=== PATIENT | female | born 1975 | race Caucasian/White ===

== ENCOUNTER 2025-07-04 14:25 | Outpatient (CLI) | payer BC, SELFPAY ==
--- OUTSIDE RECORDS SUMMARY | 2025-07-03 06:41 | XMS_ITS | Encounter Summary ---
Author Organization [facility] Address [address] [place] [address] Care Team Providers Care Photographic Machine Operator Name Role Phone Ivette Carmichael NP Unavailable Yvrose Navas MD Unavailable [phone] Daniel Alvarez MD Unavailable [phone] No, Physician Primary Care Provider Reason for Visit * Auth/Cert (Routine) Specialty Diagnoses / Procedures Referred By Contac t Referred To Contact Diagnoses Screening for colon cancer Screening for colon cancer [Z12.11] Procedures NC COLONOSCOPY FLX DX W/COLLJ SPEC WHEN PFRMD COLONOSCOPY Referral ID Status Reason Start Date Expiration Date Visits Re quested Visits Authorized [id number] 1 1 Encounter Details Date Type Department Care Team (Latest Contact Info) Description 07/03/2025 6:41 AM CDT - 07/03/2025 9:07 AM CDT Hospital Encounter [facility] [address] [place] [address] London Austin, DO [address] [place] [address] [place] [address] Discharge Disposition: Discharge to home or self care Social History Tobacco Use Types Packs/Day Years Used Date Smoking Tobacco: Never Smokeless Tobacco: Never AUDIT-C Answer Date Recorded Q1: How often do you have a drink containing alc ohol? 2-4 times a month 01/25/2024 Average Number of Drinks Not on file 024 Q3: How often do you have si x or more drinks on one occasion? Never 01/25/2024 PHQ-2 Answer Date Recorded PHQ-2 Total Score (If total score is 3 or more points, staff should administer the PHQ-9) 0 12/01/2023 Personal Safety Answer Date Recorded Have you ever been in or are you currently in a harmful physical or emotional relationship or is someone making you feel afraid or unsafe? Denies 07/03/2025 Comments No Sex and Gender Information Value Date Recorded Sex Assigned at Not on file Legal Sex Female 1:03 PM CDT Gender Identity Female 07/14/2021 10:38 AM CDT Sexual Orientation Not on file documented as of this encounter Last Filed Vital Signs Vital Sign Reading Time Taken Comments Blood Pressure 127/77 07/03/2025 8:53 AM CDT Pulse 59 07/03/2025 8:53 AM CDT Temperature 36 C (96.8 F) 07/03/2025 8:53 AM CDT Respiratory Rate 18 07/03/2025 8:53 AM CDT Oxygen Saturation 99% 07/03/2025 8:53 AM CDT Inhaled Oxygen Concentration - - Weight 72.6 kg (160 lb) 07/03/2025 7:29 AM CDT Height 160 cm (5' 3) 07/03/2025 7:29 AM CDT Body Mass Index 28.34 07/03/2025 7:29 AM CDT documented in this encounter Medications at Time of Discharge gabapentin (NEURONTIN) 100 mg capsule Take by mouth 3 (three) times a day tirzepatide 7.5 mg/0.3 mL syringe Inject under the skin levonorgestreL (MIRENA) IUD 1 each by intrauterine route once 03/31/2018 documented as of this encounter Discharge Disposition Disposition Code Departure Means Destination Comment s Discharge to home or self care documented in this encounter H&P Notes * London Austin, - 07/03/2025 7:11 AM CDT Images from the original note were not included. [facility]: Rima Cohn is a 49 y.o. White female. Chief Complaint: Screening for colon cancer. Assessment/Plan: Screening for colon cancer. The risk, complications and alternatives to the procedure were explained in detail with the patient/POA. These include, but are not limited to, hemorrhage, perforation, infection, blood transfusion, surgery, exacerbation of a known or unknown medical condition, and missed lesion. The risks of anesthesia will be explained to the Department of anesthesia. All questions were answered with appropriate understanding. The patient/POA is agreeable to the procedure. Past Medical History: Diagnosis Date HTN (hypertension) Obesity BRENDA (obstructive sleep apnea) Past Surgical History: Procedure Laterality Date SECTION 02/09/14 ORIF ANKLE FRACTURE History: Patient here for colonoscopy. No Known Allergies HOME MEDICATIONS: gabapentin (NEURONTIN) 100 mg capsule tirzepatide 7.5 mg/0.3 mL syringe levonorgestreL (MIRENA) IUD spironolactone (ALDACTONE) 25 mg tablet Social History Tobacco Use Smoking status: Never Smokeless tobacco: Never Substance and Sexual Activity Drug use: Yes Frequency: 1.0 times per week Types: Alcohol Sexual activity: Defer Partners: Male control/protection: I.U.D. Alcohol Use: Unknown (01/25/2024) AUDIT-C Frequency of Alcohol Consumption: 2-4 times a month Average Number of Drinks: Not on file Frequency of Binge Drinking: Never Family History Problem Relation Age of Onset Cancer Mother Breast cancer Maternal Grandmother Cancer Maternal Grandmother Ovarian cancer Neg Hx Thyroid cancer Neg Hx ROS: 14 point ROS is negative except as mentioned in HPI. not currently . There is no height or weight on file to calculate BMI. Gen: Patient alert, no distress, and looks stated age. HEENTN: Head normocephalic, sclera clear, and neck was supple. HRRR Lungs CTA ABD: soft without masses, tenderness, or rigidity. Bowel sounds active. SULAIMAN: no significant joint tenderness or swelling. Neurologic: Non-focal. Skin: warm and dry. Mental Status: Alert, oriented, and cooperative. Rectal: Deferred. London Austin DO Voice recognition software ([employer] Direct) was used to complete this document. Despite proofreading, third helper variances and typographical errors may occur. documented in this encounter Procedure Notes * London Austin DO - 07/03/2025 7:18 AM CDTAssociated Order(s): COLONOSCOPY [facility] Patient Name: Rima Cohn Procedure Date: 07/03/2025 7:18 AM Date of : 1975 Admit Type: Outpatient Age: 49 Gender: Female Attending MD: London Austin D.O., Room: [facility] 3 Note Status: Finalized Patient Profile: Refer to note in patient chart for documentation of history and physical. Procedure: Colonoscopy Indications: Screening for colorectal malignant neoplasm, This is the patient's first colonoscopy Referring MD: Providers: London Austin D.O. Impression: - The examined portion of the ileum was normal. - Non-bleeding internal hemorrhoids. - The examination was otherwise normal on direct and retroflexion views. - No specimens collected. Recommendation: - Discharge patient to home. - Resume previous diet. - Continue present medications. - Repeat colonoscopy in 10 years for screening purposes. - Return to primary care physician PRN. Medicines: Monitored Anesthesia Care Complications: No immediate complications. Estimated Blood Loss: Estimated blood loss: none. Procedure: Pre-Anesthesia Assessment: - As per anesthesia. The benefits, risks and alternatives of the procedure and sedation were discussed and informed consent was obtained. All questions were answered. Please refer to the signed informed consent document in the medical record. The bowel preparation used was Miralax via split dose instruction. The bowel preparation used was bisacodyl tablets via split dose instruction. The scope was passed under direct vision. The Pediatric Colonoscope [id number] was introduced through the anus and advanced to the 3 cm into the ileum. The colonoscopy was performed without difficulty. The patient tolerated the procedure well. The quality of the bowel preparation was good. Anatomical landmarks were photographed. Findings: The perianal and digital rectal examinations were normal. The terminal ileum appeared normal. Non-bleeding internal hemorrhoids were found. The hemorrhoids were small. The exam was otherwise without abnormality on direct and retroflexion views. Electronically signed by London Austin M.D. London Austin D.O. 07/03/2025 8:28:19 AM Number of Addenda: 0 Note Initiated On: 07/03/2025 7:18 AM Procedure Code(s): --- Professional --- G0121, Colorectal cancer screening; colonoscopy on individual not meeting criteria for high risk --- Technical --- G0121, Colorectal cancer screening; colonoscopy on individual not meeting criteria for high risk Diagnosis Code(s): --- Professional --- Z12.11, Encounter for screening for malignant neoplasm of colon K64.8, Other hemorrhoids --- Technical --- Z12.11, Encounter for screening for malignant neoplasm of colon K64.8, Other hemorrhoids CPT copyright 2022 [employer]. All rights reserved. The codes documented in this report are preliminary and upon pediatric clinical dietician review may be revised to meet current compliance requirements. Recognized by the [employer] for promoting quality in endoscopy documented in this encounter Nursing Notes * Aleta Ruiz, LISA - 07/03/2025 8:[address] Austin spokewith Patient and regarding today's procedure. He recommends returning in 10 years for another colonoscopy. documented in this encounter Plan of Treatment Not on file documented as of this encounter Procedures Procedure Name Priority Date/Time Associated Diagnosis Comments COLONOSCOPY 07/03/2025 8:10 AM CDT Screening for colon cancer POCT HCG, URINE Routine 07/03/2025 8:03 AM CDT COLONOSCOPY 07/03/2025 7:18 AM CDT documented in this encounter Results * POCT hCG, urine (07/03/2025 8:03 AM CDT) HCG, ur, POC Negative Negative Lot Number [id number] QC Backgroud Clear Acceptable QC Control Line Acceptable Urine 07/03/2025 8:03 AM CDT London Austin DO POINT OF CARE TEST ORDERABLES Final Result * Colonoscopy (07/03/2025 7:18 AM CDT) Anatomical Region Laterality Modality Other Narrative Procedure Note London Austin, - 07/03/2025 7:18 AM CDT [facility] Patient Name: Rima Cohn Procedure Date: 07/03/2025 7:18 AM Date of : 1975 Admit Type: Outpatient Age: 49 Gender: Female Attending MD: London Austin D.O., Room: [facility] 3 Note Status: Finalized Patient Profile: Refer to note in patient chart for documentation of history and physical. Procedure: Colonoscopy Indications: Screening for colorectal malignant neoplasm, Thisis the patient's first colonoscopy Referring MD: Providers: London Austin D.O. Impression: - The examined portion of the ileum was normal. - Non-bleeding internal hemorrhoids. - The examination was otherwise normal on directand retroflexion views. - No specimens collected. Recommendation: - Discharge patient to home. - Resume previous diet. - Continue present medications. - Repeat colonoscopy in 10 years for screening purposes. - Return to primary care physician PRN. Medicines: Monitored Anesthesia Care Complications: No immediate complications. Estimated Blood Loss: Estimated blood loss: none. Procedure: Pre-Anesthesia Assessment: - As per anesthesia. The benefits, risks and alternatives of theprocedure and sedation were discussed and informed consentwas obtained. All questions were answered. Please referto the signed informed consent document in the medical record. The bowel preparation used was Miralax via split dose instruction. The bowel preparation usedwas bisacodyl tablets via split dose instruction. The scope was passed under direct vision. The Pediatric Colonoscope [id number] was introduced through the anus and advanced to the 3 cm into the ileum. The colonoscopy was performed without difficulty. The patient tolerated the procedurewell. The quality of the bowel preparation was good. Anatomical landmarks were photographed. Findings: The perianal and digital rectal examinations were normal. The terminal ileum appeared normal. Non-bleeding internal hemorrhoids were found. The hemorrhoids weresmall. The exam was otherwise without abnormality on direct and retroflexion views. Electronically signed by London Austin M.D. London Austin D.O. 07/03/2025 8:28:19 AM Number of Addenda: 0 Note Initiated On: 07/03/2025 7:18 AM Procedure Code(s): --- Professional --- G0121, Colorectal cancer screening; colonoscopy on individual not meeting criteria for high risk --- Technical --- G0121, Colorectal cancer screening; colonoscopy on individual not meeting criteria for high risk Diagnosis Code(s): --- Professional --- Z12.11, Encounter for screening for malignant neoplasm of colon K64.8, Other hemorrhoids --- Technical --- Z12.11, Encounter for screening for malignant neoplasm of colon K64.8, Other hemorrhoids CPT copyright 2022 [employer]. All rights reserved. The codes documented in this report are preliminary and upon pediatric clinical dietician reviewmay be revised to meet current compliance requirements. Recognized by the [employer] for promoting quality in endoscopy London Austin DO ENDOSCOPY PROCEDURES Final Res ult documented in this encounter Visit Diagnoses Diagnosis Screening for colon cancer- Primary Special screening for malignant neoplasms, colon documented in this encounter Admitting Diagnoses Diagnosis Screening for colon cancer Special screening for malignant neoplasms, colon documented in this encounter Administered Medications Inactive Administered Medications - up to 3 most recent administrations Medication Order MAR Action Action Date Dose Rate Site ondansetron (ZOFRAN) injection 4 mg 4 mg, intravenous, Administer over 2 Minutes, Every 30 min PRN, nausea, vomiting, Starting on Tue07/03/25 at 0723, For 2 doses, Recovery (GI), Indications: Nausea and VomitingIndications:Nausea and Vomiting sodium chloride 0.9% flush 0.5-20 mL 0.5-20 mL, intra-catheter, As needed, line care, Starting on Tue07/03/25 at 0724, Pre-Procedure (GI), Flush volume based on line type and size. Flush before and after each use. sodium chloride 0.9% infusion 30 mL/hr, intravenous, Continuous, Starting on Tue07/03/25 at 0800, Pre-Procedure (GI) Rate/Dose Verify 07/03/2025 8:25 AM CDT 125 mL/h r Rate/Dose Change 07/03/2025 8:25 AM CDT 125 mL/ hr Rate/Dose Change 07/03/2025 8:21 AM CDT 750 mL/ hr sodium chloride 0.9% infusion 125 mL/hr, intravenous, Continuous, Starting on Tue07/03/25 at 0800, Recovery (GI) New Order/Same Infusion 07/03/2025 8:33 AM CDT 125 mL/hr 125 mL/hr documented in this encounter Historical Medications * This list may reflect changes made after this encounter. gabapentin (NEURONTIN) 100 mg capsule Take by mouth 3 (three) times a day tirzepatide 7.5 mg/0.3 mL syringe Inject under the skin added in this encounter Active and Recently Administered Medications Times are shown in CDT. Continuous Medication Order 07/01/2025 07/02/2025 07/03/2025 sodium chloride 0.9% infusion 30 mL/hr, intravenous, Continuous, Starting on Tue07/03/25 at 0800, Pre-Procedure (GI) 0811 (Canceled Entry - Provider: Demetris Knight CRNA)0820 (New Bag - Provider: Demetris Knight CRNA)0821 (Rate/Dose Change - Provider: Demetris Knight CRNA)0825 (Rate/Dose Change - Provider: Demetris Knight CRNA)0825 (Rate/Dose Verify - Provider: Demetris Knight CRNA)1308 (Due: Stopped) sodium chloride 0.9% infusion 125 mL/hr, intravenous, Continuous, Starting on Tue07/03/25 at 0800, Recovery (GI) 0833 (New Order/Same Infusion - Provider: Aleta Ruiz, LISA)0857 (Stopped - Provider: Mariana Grant RN) PRN Medication Order 07/01/2025 07/02/2025 07/03/2025 ondansetron (ZOFRAN) injection 4 mg 4 mg, intravenous, Administer over 2 Minutes, Every 30 min PRN, nausea, vomiting, Starting on Tue07/03/25 at 0723, For 2 doses, Recovery (GI), Indications: Nausea and Vomiting sodium chloride 0.9% flush 0.5-20 mL 0.5-20 mL, intra-catheter, As needed, line care, Starting on Tue07/03/25 at 0724, Pre-Procedure (GI), Flush volume based on line type and size. Flush before and after each use. documented in this encounter Orders Medications Ordered That Roberto ht Not Have Been Administered Count Last Ordered Date First Ordered Date ondansetron (ZOFRAN) injection 4 mg 1 07/03 sodium chloride 0.9% flush 0.5-20 mL 06/24 sodium chloride 0.9% infusion 1 07/03/2025 Discharge Count Last Ordered Date First Orde red Date DISCHARGE PATIENT 1 07/03/2025 documented in this encounter Care Teams Photographic Machine Operator Relationship Specialty Start Date End Date No, Physician PCP - General 09/03/24 Ivette Carmichael NP [address] [place], [place] [id number] Nurse Practitioner Nurse Practitioner 06/08/21 Yvrose Navas MD [address] [place] [address] Referring Physician Dermatology 07/14/21 Daniel Alvarez MD [address] [place], [place] [id number] Referring Physician Obstetrics and Gynecology 07/20/22 documented as of this encounter
--- OUTSIDE RECORDS SUMMARY | 2025-07-03 08:00 | XMS_ITS | Encounter Summary ---
Author Organization [facility] Address [address] [place] [address] Care Team Providers Care Outpatient Therapist Name Role Phone Ivette Carmichael NP Unavailable Yvrose Navas MD Unavailable [phone] Daniel Alvarez MD Unavailable [phone] No, Physician Primary Care Provider [phone] Reason for Visit * Auth/Cert (Routine) Specialty Diagnoses / Procedures Referred By Contfelicity t Referred To Contact Diagnoses Screening for colon cancer Screening for colon cancer [Z12.11] Procedures ME COLONOSCOPY FLX DX W/COLLJ SPEC WHEN PFRMD COLONOSCOPY Referral ID Status Reason Start Date Expiration Date Visits Re quested Visits Authorized [id number] 1 1 Encounter Details Date Type Department Care Team (Late st Contact Info) Description 07/03/2025 8:00 AM CDT - 07/03/2025 8:30 AM CDT Surgery [facility] [address] [place] [address] London Austin DO [address] [place] [address] [address] COLONOSCOPY Surgery Details Date/Time Status Location OR Service Patient Class Case Class Case Type Trauma Case? 07/03/2025 8:00 AM Posted [facility] END[facility]COPY GI 03 Gastroenterology Outpatient Elective Panel 1 Procedure LRB Anes Op Region Wound Class Comments COLONOSCOPY N/A Monitor Anesthesia Care Surgeon Surgeon Role Service Panel London Austin DO Primary Gastroenterology 1 documented in this encounter Social History Tobacco Use Types Packs/Day Years [...] Sign Reading Time Taken Comments Blood Pressure 111/77 07/03/2025 8:25 AM CDT Pulse 71 07/03/2025 8:25 AM CDT Temperature 36.8 C (98.2 F) 07/03/2025 7:29 AM CDT Respiratory Rate 18 07/03/2025 8:25 AM CDT Oxygen Saturation 100% 07/03/2025 8:25 AM CDT Inhaled Oxygen Concentration - - [...] from the original note were not included. [facility]: Rima Cohn is a 49 [...] Deferred. London Austin DO Voice recognition software ([employer]) was used to complete this document. Despite proofreading, milling planer operator variances and typographical errors may occur. documented in this encounter Procedure Notes * London Austin DO - 07/03/2025 7:18 AM CDTAssociated Order(s): COLONOSCOPY [facility] Patient Name: Rima Cohn Procedure Date: 07/03/2025 7:18 AM Date of : 1975 Admit Type: Outpatient Age: 49 Gender: Female Attending MD: London Austin D.O., Room: [facility] 3 Note Status: Finalized Patient [...] passed under direct vision. The Pediatric Colonoscope [id number] was introduced through the anus and advanced [...] colon K64.8, Other hemorrhoids CPT copyright 2022 [employer]. All rights reserved. The codes documented in this report are preliminary and upon supervisor coremaker review may be revised to meet current compliance requirements. Recognized by the [employer] for promoting quality in endoscopy documented in this encounter Nursing Notes * Aleta Ruiz, RN - 07/03/2025 8:[address] Austin [...] Laterality Modality Other Narrative Procedure Note London Austin DO - 07/03/2025 7:18 AM CDT [facility] Patient Name: Rima Cohn Procedure Date: 07/03/2025 7:18 AM Date of : 1975 Admit Type: Outpatient Age: 49 Gender: Female Attending MD: London Austin D.O., Room: [facility] 3 Note Status: Finalized Patient [...] passed under direct vision. The Pediatric Colonoscope [id number] was introduced through the anus and advanced [...] colon K64.8, Other hemorrhoids CPT copyright 2022 [employer]. All rights reserved. The codes documented in this report are preliminary and upon supervisor coremaker reviewmay be revised to meet current compliance requirements. Recognized by the [employer] for promoting quality in endoscopy London Austin DO ENDOSCOPY PROCEDURES Final Res ult documented in this encounter Visit Diagnoses Diagnosis Screening for colon cancer- Primary Special screening for malignant neoplasms, colon Screening for colon cancer Special screening for [...] 0833 (New Order/Same Infusion - Provider: Aleta Ruiz RN)0857 (Stopped - Provider: Mariana Grant RN) PRN [...] 07/03 sodium chloride 0.9% flush 0.5-20 mL 1 06/24 sodium chloride 0.9% infusion 1 07/03/2025 Discharge Count Last Ordered Date First Orde red Date DISCHARGE PATIENT 1 07/03/2025 documented in this encounter Care Teams Outpatient Therapist Relationship Specialty Start Date End Date No, Physician PCP - General 09/03/24 Ivette Carmichael NP [address] [place] [id number] Nurse Practitioner Nurse Practitioner 06/08/21 Yvrose Navas MD [address] [place], [place] [id number] Referring Physician Dermatology 07/14/21 Daniel Alvarez MD [address] [place] [address] Referring Physician Obstetrics and Gynecology 07/20/22 documented as of this encounter
--- OUTSIDE RECORDS SUMMARY | 2025-07-03 08:10 | XMS_ITS | Encounter Summary ---
Author Organization [facility] Address [address] [place] [address] Care Team Providers Care [employer] [place] Manager Name Role Phone Ivette Carmichael NP Unavailable Yvrose Navas MD Unavailable [phone] Daniel Alvarez MD Unavailable [phone] No, Physician Primary Care Provider [phone] Reason for Visit * Auth/Cert (Routine) Specialty Diagnoses / Procedures Referred By Contac t Referred To Contact Diagnoses Screening for colon cancer Screening for colon cancer [Z12.11] Procedures IN COLONOSCOPY FLX DX W/COLLJ SPEC WHEN PFRMD COLONOSCOPY Referral ID Status Reason Start Date Expiration Date Visits Re quested Visits Authorized [id number] 1 1 Encounter Details Date Type Department Care Team (Late st Contact Info) Description 07/03/2025 8:10 AM CDT Anesthesia Event [facility] [address] [place] [address] [place] [address] [place] [address] Demetris Knight CRNA [address] [place] [address] Anesthesia Record Procedure Summary Procedure Name Responsible Anesthesiologist Anesthesia Start Time Anesthesia Stop Time COLONOSCOPY Forest Bosch MD 07/03/25 0810 0 07/03/25 0825 Events Date Time Event Comment 07/03/2025 0808 0810 An Start 0810 An Start Data 0810 In Room 0812 Start Supplemental O2 0812 Patient Positioned Laterally 0813 Proc Start 0813 An Induction The patient was reevaluated immediately before moderate or deep sedation use and before anesthesia induction. 0813 Anesthesia Ready 0824 Proc Fin 0825 an stop data 0825 Out of Room 0825 Handoff to RN I completed my handoff to the receiving nurse during which we: 1. Patient identified 2. Responsible provider identified 3. Pertinent medical history reviewed 4. Procedure type and surgical course discussed 5. Intraoperative anesthetic management and any significant issues discussed 6. Expectations and concerns for postop period discussed 7. Questions solicited from receiving nurse 8. Patient disposition at the time of handoff: PACU 824 An Stop Meds Name Total lidocaine (cardiac) syringe 2 % 80 mg propofol 150 mg sodium chloride 0.9% infusion 52.86 mL * Agents Name O2 * Blood No blood administrations on file. Lines, Drains, and Airways Type Details Placement Removal Peripheral IV Placement Date: 06/24 ; Placement Time: 075; Catheter Size: 22 G; Orientation: Right; Location: Hand; Site Prep: Alcohol; Technique: Anatomical landmarks; Inserted by: Mariana Grant RN; Insertion Attempts: 1; Patient Tolerance: Tolerated well; Removal Date: 07/03/25; Removal Time: 0850; Removal Reason: Therapy completed 07/03/25 0755 by Mariana Grant RN 07/03/25 0850 by Mariana Grant, RN documented in this encounter Social History Tobacco [...] on file documented as of this encounter OR Notes * Anesthesia Postprocedure Evaluation - Demetris Knight CRNA - 07/03/2025 8:25 AM CDT Patient: Rima Cohn Procedure Summary Date: 07/03/25 Room / Location: [facility] ROOM 3 / [facility] Anesthesia Start: 809 Anesthesia Stop: 824 Procedure: COLONOSCOPY Diagnosis: Screening for colon cancer (Screening for colon cancer [Z12.11]) Providers: London Austin DO Responsible Provider: Forest Bosch MD Anesthesia Type: general/TIVA ASA Status: 2 Anesthesia Type: general/TIVA Last vitals BP 111/76 Pulse 80 Temp 36.8 ??C (98.2 ??F) (Temporal) Resp 18 Ht 160 cm (5' 3) Wt 72.6 kg (160 lb) SpO2 98% BMI 28.34 kg/m?? Anesthesia Post Evaluation Patient location during evaluation: PACU Patient participation: complete - patient participated Level of consciousness: fully awake Pain management: adequate Airway patency: adequate Evidence of recall: no Cardiovascular status: hemodynamically stable and acceptable Respiratory status: acceptable, non-labored ventilation and spontaneous ventilation Hydration status: acceptable Pt is: normothermic Nausea/Vomiting status: none No notable events documented. * Anesthesia Preprocedure Evaluation - Forest Bosch MD - 07/03/2025 8:07 AM CDT Images from the original note were not included. Anesthesia Evaluation Rima Cohn is a 49 y.o. female COLONOSCOPY Pre-Op Diagnosis Codes: * Screening for colon cancer [Z12.11] HISTORY Past Medical History Information obtained from: patient and chart. Information obtained during: In Person Cardiovascular + Hypertension Respiratory + Sleep apnea (BRENDA) Prescribed device: CPAP. Endocrine / Other Comments: Tirzepatide held Day of Surgery assessments + Possibility of assessed - HCG negative (see labs). Comments: IUD Patient Active Problem List Diagnosis Date Noted BRENDA (obstructive sleep apnea) 09/25/2024 Screening for colon cancer 07/31/2024 Bacteria in urine 01/31/2024 Class 1 obesity due to excess calories with serious comorbidity and body mass index (BMI) of 32.0 to 32.9 in adult 12/01/2023 Chronic fatigue 12/01/2023 Myalgia 12/01/2023 H/O fracture of ankle 04/18/2023 Weight gain 11/11/2022 Acne vulgaris 07/14/2021 Primary hypertension 06/08/2021 Past Medical History: Diagnosis Date HTN (hypertension) Obesity BRENDA (obstructive sleep apnea) Past Surgical History: Procedure Laterality Date SECTION 02/09/14 ORIF ANKLE FRACTURE OB History 3 Para 3 Term 3 AB Living SAB IAB Ectopic Multiple Live Births No Known Allergies Taking? Last Dose Start Date End Date Provider gabapentin (NEURONTIN) 100 mg capsule Past Week -- -- Santy Cm MD levonorgestreL (MIRENA) IUD -- 03/31/18 -- Daniel Alvarez MD tirzepatide 7.5 mg/0.3 mL syringe Past Week -- -- ProviderSanty MD Notes: Stopped on 06/22/2025 Flag for Review Taking? Last Dose Start Date End Date Provider spironolactone (ALDACTONE) 25 mg tablet () -- 09/29/23 09/28/24 Aminata Arzate, DO Take 1 tablet (25 mg total) by mouth 2 (two) times a day Current Facility-Administered Medications: ondansetron (ZOFRAN) injection 4 mg, 4 mg, intravenous, Q30 Min PRN sodium chloride 0.9% flush 0.5-20 mL, 0.5-20 mL, intra-catheter, PRN sodium chloride 0.9% infusion, 30 mL/hr, intravenous, Continuous sodium chloride 0.9% infusion, 125 mL/hr, intravenous, Continuous Social History Tobacco Use Smoking Status Never Smokeless Tobacco Never Alcohol Use: Unknown (01/25/2024) AUDIT-C Frequency of Alcohol Consumption: 2-4 times a month Average Number of Drinks: Not on file Frequency of Binge Drinking: Never Substance and Sexual Activity Drug Use Yes Frequency: 1.0 times per week Types: Alcohol Family History Problem Relation Age of Onset Cancer Mother Breast cancer Maternal Grandmother Cancer Maternal Grandmother Ovarian cancer Neg Hx Thyroid cancer Neg Hx Vitals: 07/03/25 0729 BP: 111/76 Pulse: 80 Resp: 18 Temp: 36.8 ??C (98.2 ??F) SpO2: 98% PT: No results found for requested labs within last 30 days. INR: No results found for requested labs within last 30 days. APTT: No results found for requested labs within last 30 days. Hgb A1C: No results found for requested labs within last 30 days. CBC RBC: No results found for requested labs within last 30 days. RDW: No results found for requested labs within last 30 days. MCHC: No results found for requested labs within last 30 days. MCH: No results found for requested labs within last 30 days. MCV: No results found for requested labs within last 30 days. Hct: No results found for requested labs within last 30 days. Hgb: No results found for requested labs within last 30 days. WBC: No results found for requested labs within last 30 days. MPV: No results found for requested labs within last 30 days. Platelets: No results found for requested labs within last 30 days. RDW CV: No results found for requested labs within last 30 days. RDW Sd: No results found for requested labs within last 30 days. BMP Glucose: No results found for requested labs within last 30 days. Calcium: No results found for requested labs within last 30 days. Sodium: No results found for requested labs within last 30 days. Potassium: No results found for requested labs within last 30 days. CO2: No results found for requested labs within last 30 days. Chloride: No results found for requested labs within last 30 days. BUN: No results found for requested labs within last 30 days. Creatinine: No results found for requested labs within last 30 days. DOS Physical Exam Date of Last Liquid: 07/02/25, Time of Last Liquid: 2229 Date of Last Solid: 07/01/25, Time of Last Solid: 1999 Medical history, medications, and allergies reviewed. Attestation: I endorse the findings of the anesthesia pre-evaluation assessment dated: 07/03/2025. Airway Exam: Mallampati: II Cervical ROM: FROM TM distance: >4 EENT Exam: trachea midline Current state: Patient's current state is cooperative. Anesthesia Plan ASA 2 Planned anesthesia: General/TIVA Induction: Induction: intravenous. Postoperative Plan: Patient's planned disposition post procedure is Outpatient. Informed Consent: Discussed plan with DIRECTOR OF DEMENTIA OPERATIONS and attending. Anesthesia plan and risks discussed with patient. Consent and Attending signature: I and/or my designee have discussed the anesthesia plan, benefits, possible alternatives, parental presence at time of induction (if indicated), and clinically relevant risks that may include dental injury, unintentional awareness, and/or other complications. The patient and/or parent/legal guardian understand, and agree to proceed. All questions answered. documented in this encounter Plan of Treatment Not on file documented as of this encounter Visit Diagnoses Not on filedocumented in this encounter Administered Medications Inactive Administered Medications - up to 3 most recent administrations Medication Order MAR Action Action Date Dose Rate Site lidocaine (PF) (XYLOCAINE) 20 mg/mL (2 %) preservative free injection intravenous, As needed, Starting on Tue07/03/25 at 0813, Anesthesia Intra-op Given 07/03/2025 8:13 AM CDT 80 mg propofoL (DIPRIVAN) 10 mg/mL IV intravenous, As needed, Starting on Tue07/03/25 at 0813, Anesthesia Intra-op Given 07/03/2025 8:18 AM CDT 30 mg Given 07/03/2025 8:15 AM CDT 20 mg Given 07/03/2025 8:13 AM CDT 100 mg sodium chloride 0.9% infusion 30 mL/hr, intravenous, Continuous, Starting on Tue07/03/25 at 0800, Pre-Procedure (GI) Rate/Dose Verify 07/03/2025 8:25 AM CDT 125 mL/hr Rate/Dose Change 07/03/2025 8:25 AM CDT 125 mL/ hr Rate/Dose Change 07/03/2025 8:21 AM CDT 750 mL/ hr documented in this encounter Care Teams [employer] [place] Manager Relationship Specialty Start Date End Date No, Physician PCP - General 09/03/24 Ivette Carmichael NP [address] [place] [address] Nurse Practitioner Nurse Practitioner 06/08/21 Yvrose Navas MD [address] [place] [address] Referring Physician Dermatology 07/14/21 Daniel Alvarez MD [address] [place] [id number] Referring Physician Obstetrics and Gynecology 07/20/22 documented as of this encounter
--- OUTSIDE RECORDS SUMMARY | 2025-07-04 16:12 | XMS_ITS | Clinical Summary ---
Author Organization [facility] [address] Address [address] [place] [address] Care Team Providers Care Zigzagger Name Role Phone Ivette Carmichael NP Unavailable Yvrose Navas MD Unavailable [phone] Daniel Alvarez MD Unavailable [phone] No, Physician Primary Care Provider [phone] Allergies No known active allergies Medications levonorgestreL (MIRENA) IUD 1 each by intrauterine route once 8 Active spironolactone (ALDACTONE) 25 mg tabletIndicatio ns:Primary hypertension,Ac ne vulgaris Take 1 tablet (25 mg total) by mouth 2 (two) times a day 180 tablet 3 3 Active tirzepatide 7.5 mg/0.3 mL syringe Inject under the skin Active gabapentin (NEURONTIN) 100 mg capsule Take by mouth 3 (three) times a day Active Active Problems Problem Noted Date Diagnosed Date BRENDA (obstructive sleep apnea) 09/25/2024 Screening for colon cancer 07/31/2024 Bacteria in urine 01/31/2024 Class 1 obesity due to exces s calories with serious comorbidity and body mass index (BMI) of 32.0 to 32.9 in adult 12/01/2023 Chronic fatigue 12/01/2023 Assessment & Plan (12/01/2023 4:03 PM MILLER FIRST): Encouraged daily exercise as tolerated, labs ordered. Myalgia 12/01/2023 Assessment & Plan (12/01/2023 4:03 PM MILLER FIRST): Labs ordered, will follow. Encouraged daily stretching. H/O fracture of ankle 04/18/2023 Overview (12/01/2023): right Weight gain 11/11/2022 Assessment & Plan (11/11/2022 8:58 AM MILLER FIRST): Based off patient's menstrual history/PCOS features, will check fasint insulin levels to see if elevated and possibly related to patient's weight gain/inability to loose excess weight. Encourage a weight loss program such as Weight Watchers incorporating dietary changes and aerobic / weight-bearing exercise at least 4-5 times per week, for at least 30-45 minute sessions. Acne vulgaris 07/14/2021 Assessment & Plan (12/01/2023 4:03 PM MILLER FIRST): Trial of BenzaClin, wash face twice daily with anti-bacterial soap. Continue spironolactone. Assessment & Plan (07/20/2022 4:04 PM CDT): Asymptomatic today. Clean affected areas with mild soap and water. Will restart spironolactone, mainly for bp control. Assessment & Plan (07/16/2021 9:30 AM CDT): Re-start spironolactone. Patient encouraged to monitor bps. Primary hypertension 06/08/2021 Assessment & Plan (12/01/2023 9:30 AM MILLER FIRST): Blood pressure at goal less than 140/90, continue current prescription medications, spironolactone. Assessment & Plan (08/26/2022 9:12 AM CDT): Blood Pressure Follow-up: Lifestyle modifications education provided on increase physical activity and weight reduction. Improved with spironolactone. Well controlled. Can check blood pressures at home, so will let her f/u in 1 year for physical and as needed. Assessment & Plan (07/20/2022 4:04 PM CDT): Uncontrolled, re-start spironolactone. Close f/u BP goal < 140/90. Low sodium diet recommended. Assessment & Plan (07/16/2021 9:30 AM CDT): Clinically resolved. Patient has not been taking her lisinopril- hydrochlorothiazide for weeks. D/C Lisinopril-HCT. Assessment & Plan (06/08/2021 10:35 AM CDT): Diagnosed with hypertension years ago. Now hypotensive. Will discontinue spironolactone. Continue Zestoretic 20-12.5 1 tablet q.a.m.. Hold for blood pressures less than 130/80. Resolved Problems Problem Noted Date Diagnosed Date Resolved Date Acute cystitis without hematuria 07/14/2021 07/20/2022 Assessment & Plan (07/16/2021 9:30 AM CDT): Asx. MIROSLAVA ordered. Early satiety 06/08/2021 07/20/2022 Assessment & Plan (06/08/2021 10:36 AM CDT): Recommended consultation with funeral service practitioner/embalmer. Patient reports that if she continues to have the problem she would let me know so she can get referral. Continue Tums as needed, for heartburn. Belching 06/08/2021 07/20/2022 Advanced maternal age in 11/22/2013 07/20/2022 Hypertension complicating 11/22/2013 07/20/2022 Supervision of other high ri sk pregnancies, unspecified trimester 11/19/2013 07/20/2022 Overview (07/20/2022): Two vessel umbilical cord, antepartum 11/19/2013 07/20/2022 Encounters Date Type Department Care Team Description 07/03/2025 8:10 AM CDT Anesthesia Event [address] [address] Forest Bosch MD Gill, Matthew, ROTARY CUTTER 07/03/2025 8:00 AM CDT - 07/03/2025 8:30 AM CDT Surgery [address] [address] London Austin, DO COLONOSCOPY 07/03/2025 6:41 AM CDT - 07/03/2025 9:07 AM CDT Hospital Encounter [facility] [address] [place] [address] London Austin, DO Discharge Disposition: Discharge to home or self care 05/23/2025 Telephone [facility] Gastroenterology at [address] [place] [address] Emily Phillips Prep Instructions from Last 3 Months Immunizations Immunization Administration Dates Next Due Influenza, Quadrivalent, Zoila l Culture-based MDCK, Preservative Free, Antibiotic Free, Intramuscular 07/31/2019 Influenza, Quadrivalent, Spl it, Preservative Free, Intramuscular 07/20/2022,07/14/2021,09/10/2020 Influenza, Unspecified 07/26/2023,07/24/2020,10/2018 Tdap 07/14/2021 Surgical History Surgery Date Site/Laterality Comments SECTION 02/09/14 ORIF ANKLE FRACTURE Medical History Medical History Date Comments HTN (hypertension) Obesity BRENDA (obstructive sleep apnea) Family History Medical History Relation Name Comments Breast cancer Maternal Grandmother [place] Cancer Maternal Grandmother [place] Cancer Mother Brandy Ovarian cancer Neg Hx Thyroid cancer Neg Hx Relation Name Status Comments Maternal Grandmother [place] Maternal Great-Grandmother Mother Brandy Social History Tobacco Use Types Packs/Day Years Used Date Smoking Tobacco: Never Smokeless Tobacco: Never Tobacco Cessation:Counseling Given: Not Answered AUDIT-C Answer Date Recorded Q1: How often [...] AM CDT Sexual Orientation Not on file Obstetrics History Para Term AB IAB SAB Ectopic Multiple Livin g Live Births 3 3 3 Date Outcome GA Total Labor Labor/2nd/3rd Weight Sex Type Anes PTL Ree A1 A5 Name Clin Term Term Term Last Filed Vital Signs Vital Sign Reading [...] Mass Index 28.34 07/03/2025 7:29 AM CDT Plan of Treatment Health Maintenance Due Date Last Done Comments Hepatitis B Screening 1993 Regular Well Visit/Exam 18-64 11/10/2023 11/10/2022, 07/20/2022, 07/14/2021 Depression Screening 12/01/2024 12/01/2023, 08/25/2022, 07/20/2022, Additional history exists Covid-19 Vaccine ( season) 2025 01/22/2021, 01/01/2021 Influenza Vaccine (#1) 2025 , 07/20/2022, 07/14/2021, Additional history exists Breast Cancer Screening-Mammogram 10/10/2025 10/10/2024, 10/05/2023, 08/19/2022, Additional history exists Cervical Cancer Screening 11/10/2027 11/10/2022 DTaP/Tdap/Td Vaccine (2 - Td or Tdap) 07/14/2031 07/14/2021 Colon Cancer Screening-Colonoscopy 07/03/2035 07/03/2025 Hepatitis C Screening Completed 07/14/2021 Pneumococcal vaccine <65 Aged Out No longer eligible based on patient's age to complete this topic Medical Devices Implanted Type Area Streetcar Repairer Device Identifier Shelf Expiration Date Model / Serial / Lot Med[employer] Screw Bone Cannulated Unite 4.0x38mm [id number] - [id number] Implanted:Qty: 1 on 04/21/2023 by Pankaj Salgado MD at [facility] Screw Right: Ankle [employer] [id number] / / [employer] Rudi .062in 9in Trocar [employer] Orthopedic Wire [id number] - [id number] Implanted:Qty: 1 on 04/21/2023 by Pankaj Salgado MD at [facility] Right: Ankle [employer] [id number] / / [employer] Plate Bone Medline Unite Medium Fibula Right Posterior [id number] - [id number] Implanted:Qty: 1 on 04/21/2023 by Pankaj Salgado MD at [facility] Right: Ankle [employer] [id number] / / [employer] Screw 30mm 4mm Bone Medline Unite Foot Ankle Nonlock [id number] - [id number] Implanted:Qty: 1 on 04/21/2023 by Pankaj Salgado MD at [facility] Right: Ankle [employer] [id number] / / [employer] Screw 38mm 3.5mm Bone Lock [id number] - [id number] Implanted:Qty: 1 on 04/21/2023 by Pankaj Salgado MD at [facility] Right: Ankle [employer] [id number] / / [employer] Screw Bone Medline Unite L14mm Od2.7mm Foot Ankle Nonlock [id number] - [id number] Implanted:Qty: 1 on 04/21/2023 by Pankaj Salgado MD at [facility] Right: Ankle [employer] [id number] / / [employer] Screw Royal Headed T15 4.0 X 44mm [id number] - [id number] Implanted:Qty: 1 on 04/21/2023 by Pankaj Salgado MD at [facility] Right: Ankle [employer] [id number] / / [employer] Screw Bone Medline Unite L16mm Od3.5mm Foot Ankle Nonlock [id number] - [id number] Implanted:Qty: 1 on 04/21/2023 by Pankaj Salgado MD at [facility] Right: Ankle [employer] [id number] / / [employer] Screw 16mm 3.5mm Bone Medline Unite Foot Ankle Lock [id number] - [id number] Implanted:Qty: 1 on 04/21/2023 by Pankaj Salgado MD at [facility] Right: Ankle [employer] [id number] / / [employer] Screw 14mm 4mm Bone Medline Unite Foot Ankle Nonlock [id number] - [id number] Implanted:Qty: 1 on 04/21/2023 by Pankaj Salgado MD at [facility] Right: Ankle [employer] [id number] / / [employer] Rudi .062in 9in Trocar [employer]opedic Wire [id number] - [id number] Implanted:Qty: 1 on 04/21/2023 by Pankaj Salgado MD at [facility] Right: Ankle [employer] [id number] / / [employer] Plate Bone Medline Unite Small Tibial Right Posterolateral [id number] - [id number] Implanted:Qty: 1 on 04/21/2023 by Pankaj Salgado MD at [facility] Right: Ankle [employer] [id number] / / [employer] Screw Bone Medline Unite L28mm Od3.5mm Foot Ankle Nonsterile [id number] - [id number] Implanted:Qty: 1 on 04/21/2023 by Pankaj Salgado MD at [facility] Right: Ankle [employer] [id number] / / [employer] Screw Bone Medline Unite L22mm Od3.5mm Foot Ankle Nonlock [id number] - [id number] Implanted:Qty: 2 on 04/21/2023 by Pankaj Salgado MD at [facility] Right: Ankle [employer] [id number] / / [employer] Screw Bone Medline Unite L14mm Od3.5mm Foot Ankle Nonlock [id number] - [id number] Implanted:Qty: 2 on 04/21/2023 by Pankaj Salgado MD at [facility] Right: Ankle [employer] [id number] / / [employer] Screw Bone Medline Unite L30mm Od3.5mm Foot Ankle Nonlock [id number] - [id number] Implanted:Qty: 1 on 04/21/2023 by Pankaj Salgado MD at [facility] Right: Ankle [employer] [id number] / / [employer] Screw 20mm 3.5mm Bone Medline Unite Foot Ankle Lock [id number] - [id number] Implanted:Qty: 1 on 04/21/2023 by Pankaj Salgado MD at [facility] Right: Ankle [employer] [id number] / / Explanted Type Area Streetcar Repairer Device Identifier Shelf Expiration Date Model / Serial / Lot Medline [employer] Screw Bone Medline Unite L28mm Od3.5mm Foot Ankle Nonsterile [id number] - [id number] Explanted:Qty: 2 on 04/21/2023 by Pankaj Salgado MD at [facility] Right: Ankle [employer] [id number] / / Procedures Procedure Name Priority Date/Time Associated Diagnosis Comments COLONOSCOPY 07/03/2025 8:10 AM CDT Screening for colon cancer POCT HCG, URINE Routine 07/03/2025 8:03 AM CDT COLONOSCOPY 07/03/2025 7:18 AM CDT SCREENING MAMMOGRAM BILATERAL W MICHLEE Schedule Routine, Read Routine (OP Routine) 10/10/2024 8:13 AM MILLER FIRST Screening mammogram, encounter for PAP AND HIGH RISK HPV, REFLEX TO GENOTYPING Routine 11/10/2022 10:03 AM MILLER FIRST Well woman exam HEPATITIS C ANTIBODY Routine 07/14/2021 12:27 PM CDT Encounter for hepatitis C screening test for low risk patient from Last 3 Months or Most Recently Relevant to Health Maintenance Results * POCT hCG, urine (07/03/2025 8:03 AM CDT) HCG, ur, POC Negative Negative Lot Number [id number] Backgroud Clear Acceptable QC Control Line Acceptable Urine 07/03/2025 8:03 AM CDT London Austin DO POINT OF CARE TEST ORDERABLES Final Result * Colonoscopy (07/03/2025 7:18 AM CDT) Anatomical Region Laterality Modality Other Narrative Procedure Note London Austin, - 07/03/2025 7:18 AM CDT [facility] Patient Name: Rima Cohn Procedure Date: 07/03/2025 7:18 AM Date of : 1975 Admit Type: Outpatient Age: 49 Gender: Female Attending MD: London Austin D.[place]ie[place], Room: [facility] ENDOSCOPY ROOM 3 Note Status: Finalized Patient [...] passed under direct vision. The Pediatric Colonoscope [id number] was introduced through the anus and advanced [...] in this report are preliminary and upon jewish thought professor reviewmay be revised to meet current compliance requirements. Recognized by the [employer] for promoting quality in endoscopy London Austin DO ENDOSCOPY PROCEDURES Final Res ult * Screening Mammogram Bilateral W Michele (10/10/2024 8:13 AM MILLER FIRST) Anatomical Region Laterality Modality Breast Bilateral Mammography 10/10/2024 11:5 8 AM MILLER FIRST Impressions 10/10/2024 11:58 AM MILLER FIRST There is no mammographic evidence of malignancy. A 1 year screening mammogram is recommended. BI-RADS: 1 - Negative. The patient has been or will be contacted. The patient will be entered into a reminder system with a target due date of 1 year for her next mammogram. Electronically signed by: Brie Stern M.D. Narrative 10/10/2024 11:58 AM MILLER FIRST EXAMINATION: SCREENING MAMMOGRAM BILATERAL W MICHELE ORDERING HEALTHCARE PROVIDER: SELF SCREENING MAMMOGRAM HISTORY: Routine screening mammography. COMPARISON: 10/05/2023, 08/19/2022, 06/13/2021 TECHNIQUE: CC and MLO views of the bilateral breasts were obtained with digital technique using breast tomosynthesis with C view. Computer aided detection was utilized. FINDINGS: DENSITY: There are scattered areas of fibroglandular density. BREASTS: There are no suspicious masses, suspicious calcifications, or other suspicious findings in either breast. There has been no suspicious interval change. us Self Screening Mammogram IMG MAMMO PROCEDURES Fi nal Result * Pap and High Risk HPV, reflex to Genotyping (11/10/2022 10:03 AM MILLER FIRST) CLINICAL INFORMATION: [facility] Comment:Routine exam LMP [facility] Comment:MIRENA IUD NO CYLES Previous Pap [facility] Comment:NONE GIVEN Prev. Bx [facility] Comment:NONE GIVEN SOURCE: [facility] Comment:Cervix, Endocervix Pap, specimen adequacy [facility] Comment: Satisfactory for evaluation. Endocervical/transformation zone component present. HPV interp [facility] Comment:Negative for intraep ithelial lesion or malignancy. Machine Operator Transplanter Que [facility] Comment: LM, CT(ASCP) CT screening location: [place] [address] Administration LEANA Riggs [address] Comment [facility] Comment: EXPLANATORY NOTE: The Pap is a screening test for cervical cancer. It is not a diagnostic test and is subject to false negative and false positive results. It is most reliable when a satisfactory sample, regularly obtained, is submitted with relevant clinical findings and history, and when the Pap result is evaluated along with historic and current clinical information. Human papillomavirus DNA, High Risk E6/E7 Not Detected NOT DETECTED [employer] /Julius [place]ayush [place] Comment: Not Detected High Risk HPV types (16,18,31,33,35,39,45,51,52, 56,58,59,66,68) were not detected. Other HPV types which cause anogenital lesions may be present. The significance of the other types of HPV in malignant processes has not been established. Methodology: Real Time PCR Thin prep 11/10/2022 10:0 3 AM MILLER FIRST 11/11/2022 1:21 AM MILLER FIRST Aleta Ramos NP LAB CYTOLOGY ORDERABLES Final Re sult [facility] [address] [address] [place] [place] [address] [employer]/[place] [address] [facility] [place] [address] * Hepatitis C antibody (07/14/2021 12:27 PM CDT) Hep C Ab Nonreactive Nonreactive [facility]BY CASTAÑEDA () Comment: Interpretive Data Nonreactive: Antibodies to HCV not detected. Does NOT exclude the possibility of recent exposure to HCV. Equivocal: Equivocal for HCV antibodies. Supplemental molecular testing will be automatically performed to determine infection status in accordance with current CDC screening recommendations. Reactive: Positive for HCV antibodies. This may represent current or past HCV infection. Supplemental molecular testing will be automatically performed to determine current infection status in accordance with current CDC screening recommendations. Interpretive data was last revised on 2020. Testing performed by: [facility], [address] [place] [address], [place] [address] Blood 07/14/2021 12:2 7 PM CDT 07/14/2021 7:12 PM CDT us Aminata Arzate DO LAB MICROBIOLOGY - GENERAL ORDERABLES Final Result RUBY GARRY (SAVANNAH) 1 [facility] [place] [address] from Last 3 Months or Most Recently Relevant to Health Maintenance [facility] X-Scan Imaging [place] X-Scan Imaging [place] Advance Directives For more information, please contact: [phone] * Full Code (Latest Code Status on File) Date Activated Date Inactivated Comments 07/03/2025 7:24 AM 07/03/2025 1:13 PM * Full Code Date Activated Date Inactivated Comments 07/03/2025 7:24 AM 07/03/2025 7:24 AM Care Teams Zigzagger Relationship Specialty Start Date End Date No, Physician PCP - General 09/03/24 Ivette Carmichael NP [address] [place] [address] Nurse Practitioner Nurse Practitioner 06/08/21 Yvrose Navas MD [address] [place] [address] Referring Physician Dermatology 07/14/21 Daniel Alvarez MD [address] [place] [address] Referring Physician Obstetrics and Gynecology 07/20/22
[2025-07-04 19:17] LABS: Add Urine Microscopic? YES; Appearance Urine Cloudy (Clear); Glucose Urine UA Negative (Negative); Leukocyte Esterase Ur 3+ LEU/UL (Negative); Nitrate Urine Positive (Negative); Specific Grav Ur 1.015 (1.001-1.035)
== END 2025-07-04 14:26 | disposition home or self-care (01) ==
PROVIDERS: PCP Nurse Practitioner Adult Health; Visit Provider Nurse Practitioner Adult Health
DX: R39.9 Unspecified symptoms and signs involving the genitourinary system (principal)
CPT/HCPCS: 81001; 87086; 87186